=== PATIENT | male | born 1940 | race Caucasian/White ===

== ENCOUNTER 2019-05-11 08:48 | Day surgery (SDC) | payer OTHER ==
[2019-05-10 16:17] VITALS: BMI 23.3
[2019-05-11 10:34] VITALS: TEMP 97.6
[2019-05-11 11:23] LABS: BILIRUBIN,TOTAL 0.8 mg/dL (0.2-1); BLOOD UREA NITROGEN 19.3 mg/dL (7-18); CALCIUM 9.4 mg/dL (8.5-10.1); CREATININE 1.2 mg/dL (0.55-1.3); POTASSIUM 3.7 mmol/L (3.5-5.1); TOT PROT 7.5 g/dl (6.4-8.2)
[2019-05-11 12:01] VITALS: BP 139/83; PULSE 63
--- NOTE | 2019-05-14 10:21 | PATH ---
Surgical Pathology Report Patient Name: AURELIO BOSS [facility]. Rec. #: [id number] /Age/Gender: 1940 (Age: 79) / M Account: [id number] Location: [facility]-ENDOSCOPY Taken: 05/11/2019 Received: 05/11/2019 Reported: 05/14/2019 Physicians: Jonathan Mcdowell D.O. Specimen(s) Received A: 2ND PORTION DUODENAL POLYP BX B: BX OF 2ND PORTION DUODENUM AND BULB C: BX ANTRUM D: BX DISTAL BODY AND ANGULARIS E: BX BODY OF STOMACH F: ESOPHAGEAL POLYP AT 30CM Clinical History Nausea Postoperative diagnosis: Gastritis, esophageal polyp Final Diagnosis A. SECOND PORTION DUODENAL POLYP, BIOPSY: DUODENUM MUCOSA WITH NONSPECIFIC CHRONIC DUODENITIS AND REACTIVE LYMPHOID AGGREGATE IN THE LAMINA PROPRIA. B. SECOND PORTION AND BULB, DUODENUM, BIOPSY: DUODENUM MUCOSA WITH NONSPECIFIC CHRONIC DUODENITIS AND REACTIVE LYMPHOID AGGREGATE IN THE LAMINA PROPRIA. C. ANTRUM, BIOPSY: GASTRIC MUCOSA WITH CHRONIC GASTRITIS AND REACTIVE GASTROPATHY. IMMUNOSTAIN FOR H. PYLORI IS NEGATIVE. NEGATIVE FOR INTESTINAL METAPLASIA. D. ANGULARIS AND DISTAL BODY, BIOPSY: GASTRIC MUCOSA WITH CHRONIC GASTRITIS. IMMUNOSTAIN FOR H. PYLORI IS NEGATIVE. NEGATIVE FOR INTESTINAL METAPLASIA. E. BODY OF STOMACH, BIOPSY: GASTRIC MUCOSA WITH MODERATE CHRONIC GASTRITIS. IMMUNOSTAIN FOR H. PYLORI IS NEGATIVE. POSITIVE FOR INTESTINAL METAPLASIA. F. ESOPHAGEAL POLYP AT 30 CM, BIOPSY: CONSISTENT WITH SQUAMOUS PAPILLOMA. Electronically Signed George Jackman M.D. Gross Description A. Received in formalin, labeled "second portion duodenum polyp" is a madrigal, irregular portion of soft tissue measuring 0.3 cm. in greatest dimension. The specimens are submitted in toto in one cassette. B. Received in formalin, labeled "second portion and duodenum bulb" are 2 madrigal, irregular portion of soft tissue measuring 0.1 to 0.3 cm. in greatest dimension. The specimens are submitted in toto in one cassette. C. Received in formalin, labeled "antrum" are 2 madrigal, irregular portions of soft tissue measuring 0.2 to 0.3 cm. in greatest dimension. The specimens are submitted in toto in one cassette. D. Received in formalin, labeled "angularis and distal body" are 2 madrigal, irregular portions of soft tissue measuring 0.1 to 0.4 cm. in greatest dimension. The specimens are submitted in toto in one cassette. E. Received in formalin, labeled "body of stomach" are multiple madrigal, irregular portion of soft tissue measuring 0.9 x 0.9 x 0.1 cm aggregate. The specimens are submitted in toto in one cassette. F. Received in formalin, labeled "esophageal polyp at 30 cm" are two madrigal, irregular portion of soft tissue measuring 0.1 to 0.2 cm. in greatest dimension. The specimens are submitted in toto in one cassette. Are__ MICHAEL/05/11/2019 estela/05/11/2019
== END 2019-05-11 11:45 | disposition home or self-care (01) ==
LOC: JASU-ENDO 08:48
PROVIDERS: ATTEND Internal Medicine Gastroenterology
PROC: 0DB68ZX Excision of Stomach, Via Natural or Artificial Opening Endoscopic, Diagnostic (ICD-10-PCS; 2019-05-11)
PROC: 0DB28ZX Excision of Middle Esophagus, Via Natural or Artificial Opening Endoscopic, Diagnostic (ICD-10-PCS; 2019-05-11)
PROC: 0DB98ZX Excision of Duodenum, Via Natural or Artificial Opening Endoscopic, Diagnostic (ICD-10-PCS; principal; 2019-05-11 09:45)
DX: K29.80 Duodenitis without bleeding (principal); K29.50 Unspecified chronic gastritis without bleeding; D13.0 Benign neoplasm of esophagus
CPT/HCPCS: 36415; 80053; 88305-TC; 88342-TC